=== PATIENT | male | born 2005 | race Caucasian/White ===

== ENCOUNTER 2024-07-12 12:22 | Emergency (ER) | payer OTHER ==
[2024-07-12 12:38] VITALS: BP 123/77; O2SAT 98
--- NOTE | 2024-07-12 13:03 | ED Physician Documentation ---
History of Present Illness - Stated complaint Stated Complaint: RT EAR PX,ISSUES HEARING - Chief complaint Chief Complaint: Heent - History obtained from History obtained from: Patient - Additonal information Additional information: Patient is a 19-year-old male presenting to the emergency department with right ear pain and decreased hearing symptoms have been going on for about 3 days. He notes about 1 week ago he was swimming in the ocean. He notes symptoms only started 3 days ago though. He denies any fevers he notes pain with opening closing his jaw. He denies any trauma to his ear. He denies any significant discharge. PD PAST MEDICAL HISTORY - Past Medical History Past Medical History: No Cardiovascular: None Respiratory: None Neuro: None Endocrine/Autoimmune: None GI: None : None HEENT: None Psych: None Musculoskeletal: None Derm: None - Past Surgical History Past Surgical History: No - Present Medications Home Medications: Ambulatory Orders Medication Instructions Recorded Confirmed Cetirizine [ZyrTEC] 10 mg PO DAILY 07/12/24 07/12/24 Ciproflox/Dexameth Otic Drops 4 drops OT BID #7.5 ml 07/12/24 [Ciprodex Otic Drops] - Allergies Allergies/Adverse Reactions: Allergies Allergy/AdvReac Type Severity Reaction Status Date / Time No Known Drug Allergies Allergy Verified 07/12/24 12:28 - Social History Does the pt smoke?: No Smoking Status: Never smoker Does the pt drink ETOH?: Yes Does the pt have substance abuse?: No - Immunizations Immunizations are current?: Yes - POLST Patient has POLST: No PD ED PE NORMAL - Vitals Vital signs reviewed: Yes - General General: Alert and oriented X 3 - HEENT HEENT: Atraumatic, Other (Right ear shows large amount of soft cerumen in ear canal. No signs of erythema around ear canal. Unable to visualize tympanic membrane. Left ear shows no bulging or erythema to left tympanic membrane and no signs of cerumen in left ear canal.) - Cardiac Cardiac: RRR, No murmur, No gallop, No rub - Respiratory Respiratory: No respiratory distress, Clear bilaterally Results - Vitals Vitals: Vital Signs - 24 hr 07/12/24 12:29 Temperature 36.8 C Heart Rate 76 Respiratory 16 Rate Blood Pressure 123/77 O2 Saturation 98 PD Medical Decision Making - ED course Complexity details: reviewed old records, reviewed results ED course: Patient is a 19-year-old male presenting to the emergency department with right ear pain and decreased hearing. Symptoms have been going on for 3 days. He notes pain worsens with opening his jaw. He denies any discharge no fevers chills, no sinus congestion no sore throat symptoms. Vital stable on arrival. Right ear does show a large amount of soft cerumen unable to visualize right tympanic membrane. Left ear shows no signs of erythema to the tympanic membrane and clear ear canal. Discussed with patient would like to perform cerumen removal procedure. He was agreeable with this plan. Discussed risk versus benefits including rupture of tympanic membrane, dizziness, ear pain, ear bleeding. Patient understood and is agreeable with this plan. Right ear cerumen was flushed with catheter and large amount of soft cerumen removed. Minimal bleeding noted after and tympanic membrane appears intact without erythema or bulging. Patient will be given otic drops at home called Ciprodex to prevent any ear infection given irritation to tympanic membrane that occurred during procedure. Patient instructed to watch for any severe pain any redness swelling to the area any fevers. He is agreeable with this plan. Patient will return with any new or worsening symptoms. Departure - Departure Disposition: 01 Home, Self Care Clinical Impression: Impacted cerumen of right ear, Acute ear pain Condition: Good Prescriptions: Ciproflox/Dexameth Otic Drops [Ciprodex Otic Drops] 4 drops OT BID #7.5 ml Comments: Your ear was cleaned thoroughly with flushing you had minimal bleeding after this procedure large amount of earwax was removed here in the emergency department today. This is most likely causing your symptoms. Return with any decreased hearing severe pain swelling redness or worsening irritation to the right ear. Use Ciprodex drops as sent to your pharmacy to prevent any worsening ear irritation or cerumen buildup again. Forms: PCP List
== END 2024-07-12 13:10 | disposition home or self-care (01) ==
LOC: ED 12:22
DX: H61.21 Impacted cerumen, right ear (principal)
CPT/HCPCS: 69209; 99282; 99283